=== PATIENT | female | born 2000 | race Caucasian/White ===

== ENCOUNTER 2024-03-02 18:39 | Emergency (ER) | payer OTHER, SELFPAY ==
[2024-03-02 18:55] VITALS: BP 145/93
--- NOTE | 2024-03-02 18:57 | ED.GENMED ---
ED Provider Triage
<Michelle Malave NP - Last Filed: 03/02/24 19:05>
-
Patient seen by provider in Triage?: Seen in Triage
Attestation: A medical screening examination has been initiated by a qualified medical provider. Based on the assessment performed at this time, it has been determined that an emergent medical condition may exist and the patient has been informed
that further medical evaluation and possible additional diagnostic testing may be needed.
HPI: 23 yo female w hx of Em's, migraines , Has felt fast heart rate off and on since mid January a week after she upped amitriptyline dose up, from 20 mg to 40 mg 02/02, she also she switched control same date from Pimtrea to new one
(doesn't know the name).
HR has been consistently higher than her usual 60-70 range and today via her Ora-ring, HR has been 90's to 124 HR.. Denies CP, SOB.
GENERAL: Alert , in no apparent distress
EYE: No visual abnormalities.
NECK: Trachea midline
ENT: No visible abnormalities.
LUNGS: No acute respiratory distress
NEUROLOGICAL: Alert and oriented
SKIN: Skin intact. No visible changes.
MUSCULOSKELETAL: Moving extremities normally
PSYCH: Normal and appropriate interaction.
This is a medical evaluation conducted in person to initiate diagnostic evaluation and provide initial therapeutics. Please see further documentation by the treating clinician.
History of Present Illness
<Michelle Malave [employer] - Last Filed: 03/02/24 19:05>
General
Chief Complaint: Heart Rate Problem
Time Seen by Provider: 03/02/24 23:43
<PIETRO Delgado - Last Filed: 03/03/24 00:28>
General
Source: patient
Exam Limitations: none
History of Present Illness
History of Present Illness:
This is a 23 year old female that comes in with c/o increased heart rate. States that in the past week she felt it was worse. States that she did not notice it as much prior to this week. States that her heart rate can go up to 150 and then down to
124 today. States that the lowest was 88. States that 3 weeks ago she increased her Amitriptyline from 20mg to 40mg and she changed her control. States that she has not gone back down on her medication to 20 and she is thinking about stopping
her control. Patient has talked with the PCP provider. Denies any fever, chills, chest pain, SOB, abd pain, nausea, vomiting, diarrhea, headache, dizziness, urinary burning.
Past History
<PIETRO Delgado - Last Filed: 03/03/24 00:28>
Past History
ED Past Medical History: Other (Migraines)
ED Past Surgical History: None
Social History
Tobacco: Non-smoker
Alcohol: None
Personal: Single
Living: alone
Review of Systems
<PIETRO Delgado - Last Filed: 03/03/24 00:28>
Review of Systems
All Other Systems: ROS reviewed and negative except as documented in HPI and ROS
Constitutional: Reports no symptoms; Denies fever or chills
EENT: Reports no symptoms
Respiratory: Reports no symptoms; Denies cough or trouble breathing
Cardiac: Reports other (Increased heart rate)
ABD/GI: Reports no symptoms; Denies abdominal pain, nausea, vomiting or diarrhea
: Reports no symptoms; Denies dysuria, frequency or urgency
Musculoskeletal: Reports no symptoms
Skin: Reports no symptoms
Neurological: Reports no symptoms; Denies dizzy or headache
Psychiatric: Reports no symptoms
Phy Exam
<PIETRO Delgado - Last Filed: 03/03/24 00:28>
General Physical Exam
General Presentation: well appearing and no apparent distress
General age: appears stated age
General Skin: warm and dry
General Habitus: normal
General Mental: alert
General Hydration: appears well hydrated
ENT Exam
ENT Exam: TM's normal, pharynx normal and neck supple
Eye Exam
Eye Exam: EOMI
Cardiovascular Exam
Cardiovascular Exam: regular rate/rhythm, no edema, no murmur and normal peripheral pulses
Pulmonary Exam
Pulmonary Exam: lungs clear, no respiratory distress, no rales, chest non tender, no crackles, no rhonchi, no wheezing and no cough
Gastrointestinal Exam
Gastrointestinal Exam: normal bowel sounds, non tender, soft, no organomegaly, no pulsatile mass and non distended
Musculoskeletal Exam
Musculoskeletal Exam: full ROM and no edema
Skin Exam
Skin Exam: normal color, warm/dry, no rash and no petechia
Psychiatric Exam
Psychiatric Exam: normal mood/affect
Course
<Michelle Malave NP - Last Filed: 03/02/24 19:05>
Orders/Labs/Results
Orders:
Orders
03/02/24 18:41
ECG [Electrocardiogram (*1)] Urgent
Reason for Study: Palpitations
EKG- Treatment ONCE
03/02/24 19:03
Test Result ONCE
03/02/24 19:21
Comprehensive Metabolic Panel Urgent
HCG, Serum Qualitative Screen Urgent
03/02/24 19:22
Complete Blood Count/With Diff Urgent
Free T4 Urgent
TSH Reflex To Free T4 Urgent
03/02/24 23:59
D-Dimer Urgent
Abnormal Lab Results
03/02/24 03/02/24
19:21 19:22
WBC 11.4 H 10^3/uL
(4.8-10.8)
MCH 32.7 H pg
(27.0-31.0)
Absolute Lymphs (auto) 4.2 H 10^3/uL
(1.2-3.4)
Absolute Monos (auto) 0.8 H 10^3/uL
(0.1-0.6)
Total Protein 8.3 H g/dl
(6.3-8.2)
TSH (Reflex) 6.81 H uIU/ml
(0.47-4.68)
03/02/24 19:22
03/02/24 19:21
Vital Signs
Initial and Last Documented VS:
Initial Vital Signs
Temp Pulse Resp BP Pulse Ox
97.6 F 121 16 145/93 100
03/02/24 18:55 03/02/24 18:55 03/02/24 18:55 03/02/24 18:55 03/02/24 18:55
Last Documented Vital Signs
Temp Pulse Resp BP Pulse Ox
97.6 F 93 18 138/89 100
03/02/24 18:55 03/02/24 23:35 03/02/24 23:35 03/02/24 23:35 03/02/24 23:35
<PIETRO Delgado - Last Filed: 03/03/24 00:28>
Orders/Labs/Results
Orders:
Orders
03/02/24 18:41
ECG [Electrocardiogram (*1)] Urgent
Reason for Study: Palpitations
EKG- Treatment ONCE
03/02/24 19:03
Test Result ONCE
03/02/24 19:21
Comprehensive Metabolic Panel Urgent
HCG, Serum Qualitative Screen Urgent
03/02/24 19:22
Complete Blood Count/With Diff Urgent
Free T4 Urgent
TSH Reflex To Free T4 Urgent
03/02/24 23:59
D-Dimer Urgent
Abnormal Lab Results
03/02/24 03/02/24
19:21 19:22
WBC 11.4 H 10^3/uL
(4.8-10.8)
MCH 32.7 H pg
(27.0-31.0)
Absolute Lymphs (auto) 4.2 H 10^3/uL
(1.2-3.4)
Absolute Monos (auto) 0.8 H 10^3/uL
(0.1-0.6)
Total Protein 8.3 H g/dl
(6.3-8.2)
TSH (Reflex) 6.81 H uIU/ml
(0.47-4.68)
03/02/24 19:22
03/02/24 19:21
WBC slightly elevated. TSH elevation with Free T4 normal at 0.85. HCG negative.
Vital Signs
Initial and Last Documented VS:
Initial Vital Signs
Temp Pulse Resp BP Pulse Ox
97.6 F 121 16 145/93 100
03/02/24 18:55 03/02/24 18:55 03/02/24 18:55 03/02/24 18:55 03/02/24 18:55
Last Documented Vital Signs
Temp Pulse Resp BP Pulse Ox
97.6 F 93 18 138/89 100
03/02/24 18:55 03/02/24 23:35 03/02/24 23:35 03/02/24 23:35 03/02/24 23:35
<PIETRO Delgado - Last Filed: 03/03/24 00:28>
MDM/Problems Addressed
Differential Diagnosis Includes:
PE, Palpitations, Medication reaction
MDM/Problems Addressed:
This is a 23 year old female that comes in with c/o increased heart rate. States that her medication was changed about 3 weeks ago and she did not noticed her increased heart rate to much until this passed week. Patient has decreased the medication
and is thinking of going off the control.
Will check labs, ECG
Explained to patient that this may be medication related. Offered to check D-dimer due to patient being on control but declined. Patient has an appointment with the Primary care doctor on . Encouraged patient to stop her caffeine use
as this can also cause Palpitations and increase her heart rate. Patient to return with any concerns.
Chronic conditions affecting care:
NA
Acute Exacerbation and/or Progression of Chronic Illness:
NA
<PIETRO Delgado - Last Filed: 03/03/24 00:28>
*Pulse Oximetry
Patient hypoxic: no
*EKG
Interpreted by ED Provider?: Yes
Heart Rate: 110
Rate: tachycardiac
Rhythm: sinus
[place]: left axis deviation
Interval: normal interval
QRS Pattern: normal QRS
Ischemia: no ischemia
*Registered Nurse Obstetrics Interpretation
Rate: Registered Nurse Obstetrics- N/A
*Critical Care Note
Total Time (30-74mins, 75-104mins- exclusive of procedures): Not Applicable
ED Attending Note
<Michelle Malave NP - Last Filed: 03/02/24 19:05>
-
Portions of this chart may have been created with voice recognition software.� Occasional wrong word or��sound alike� substitutions may have occurred due to the inherent limitations of voice recognition software.
Discharge Plan
Departure
Patient Disposition: Home (Routine Discharge)
Date of Disposition: 03/03/24
Time of Disposition: 00:22
Patient with high blood pressure during this ER visit?: Yes
Condition: Good
Covid-19: Not Applicable
Discharge Problem:
Tachycardia
Instructions: Sinus Tachycardia (DC), BLOOD PRESSURE
Prescriptions:
No Action
fexofenadine-pseudoephedrine [Mariaa-D 24 Hour] 1 EACH tablet extended release 24 hr
180 mg PO DAILY
Referrals:
Jayme Nogueira DO [Family Provider] - 03/08/24
Activity Restrictions/Additional Instructions:
As discussed, your blood work shows that your Thyroid function is elevated. Your Free T4 is normal. Your ECG is normal. This may be related to medication. Please try and decrease your caffeine intake as this is a stimulant. Please increase your
water intake to 8-8oz glasses daily. Follow up with the Family doctor as scheduled. IF YOU HAVE ANY CHEST PAIN, YOUR HEART RATE REMAINS ELEVATED OR YOU HAVE ANY OTHER CONCERNS PLEASE RETURN TO THE EMERGENCY ROOM.
Interventions
Interventions:
*Risk Screen - Suicide Last Done: 03/02/24 18:55
*General Assessment Last Done: 03/02/24 18:55
*Neglect/Abuse Screening Last Done: 03/02/24 18:55
*ED COVID-19 Vaccine History Last Done: 03/02/24 23:35
ED- Cardiac Assessment Last Done: 03/02/24 23:35
ED- Pulmonary Assessment Last Done: 03/02/24 23:35
Discharge Date and Time
Print Language: SYRIAC
[2024-03-02 19:30] LABS: % Basophils 0.6 % (0-2); % Eosinophils 0.9 % (0-6); % Immature Granulocytes 0.4 % (0-0.5); % Lymphocytes 37.1 % (20.5-51.1); % Monocytes 7.2 % (1.7-9.3); % Neutrophils 53.8 % (42.2-75.2); Absolute Basophils 0.1 10^3/uL (0-0.2); Absolute Eosinophils 0.1 10^3/uL (0-0.7); Absolute Lymphocytes 4.2 10^3/uL (1.2-3.4); Absolute Monocytes 0.8 10^3/uL (0.1-0.6); Absolute Neutrophils 6.1 10^3/uL (1.4-6.5); Hematocrit 42.6 % (37.0-47.0); Hemoglobin 14.4 g/dL (12.0-16.0); Mean Corp Hgb Conc. 33.8 g/dL (33.0-37.0); Mean Corpuscular Hgb 32.7 pg (27.0-31.0); Mean Corpuscular Volume 96.6 fL (81.0-99.0); Nucleated Red Blood Cells % 0 %; Platelet Count 362 10^3/uL (130-400); Red Blood Cell Count 4.41 10^6/uL (4.20-5.40); Red Cell Dist. Width 11.9 % (11.5-14.5); White Blood Cell Count 11.4 10^3/uL (4.8-10.8)
[2024-03-02 19:44] LABS: HCG, Serum Qualitative Screen Negative
[2024-03-02 19:45] LABS: ALT (SGPT) 27 U/L (0-35); AST (SGOT) 32 U/L (14-36); Albumin 4.8 g/dl (3.5-5.0); Alkaline Phosphatase 99 U/L (38-126); Blood Urea Nitrogen 13 mg/dl (7-17); Calcium 10.2 mg/dl (8.4-10.2); Carbon Dioxide 23 mmol/L (22-30); Chloride 102 mmol/L (98-107); Glucose 99 mg/dl (70-99); Potassium 4.1 mmol/L (3.5-5.1); Sodium 138 mmol/L (135-145); Total Bilirubin 0.4 mg/dl (0.2-1.3); Total Protein 8.3 g/dl (6.3-8.2); eGFR > 60.00
[2024-03-02 20:15] LABS: TSH Reflex To Free T4 6.81 uIU/ml (0.47-4.68)
[2024-03-02 20:44] LABS: Free T4 0.85 ng/dl (0.78-2.19)
[2024-03-02 23:35] VITALS: BP 138/89
== END 2024-03-03 01:00 | disposition home or self-care (01) ==
LOC: EMR 18:39
PROVIDERS: Registered Nurse; EMERGENCY PHYSICIAN Emergency Medicine; FAMILY PHYSICIAN Family Medicine
DX: R00.0 Tachycardia, unspecified (principal); R03.0 Elevated blood-pressure reading, without diagnosis of hypertension; E06.3 Autoimmune thyroiditis
CPT/HCPCS: 99284; 80053; 84439; 84443; 84703; 85025; 93005

== ENCOUNTER → 2024-03-31 10:48 | Outpatient (REF) | payer OTHER, SELFPAY | LOC: RCS 10:48 | PROVIDERS: ATTENDING PHYSICIAN Internal Medicine Cardiovascular Disease; FAMILY PHYSICIAN Family Medicine | DX: R00.0 Tachycardia, unspecified (principal); G43.009 Migraine without aura, not intractable, without status migrainosus; E07.9 Disorder of thyroid, unspecified | CPT/HCPCS: 93225; 93226 ==

== ENCOUNTER → 2024-04-05 16:02 | Outpatient (REF) | payer OTHER, SELFPAY | LOC: HWRCS 16:02 | PROVIDERS: ATTENDING PHYSICIAN Internal Medicine Cardiovascular Disease; FAMILY PHYSICIAN Family Medicine | DX: R00.0 Tachycardia, unspecified (principal); G43.009 Migraine without aura, not intractable, without status migrainosus; E07.9 Disorder of thyroid, unspecified | CPT/HCPCS: 93306 ==